=== PATIENT | female | born 1965 | race Caucasian/White ===

== ENCOUNTER 2024-07-20 11:12 | Emergency (ER) | payer OTHER ==
[~2024-07-20] VITALS: Ht 167.6 cm; Wt 86.2 kg
[2024-07-20 11:35] VITALS: BP 139/74; TEMP 98.4
[2024-07-20] MEDS ORDERED: IBUP-1955 PO (11:52)
[2024-07-20] MEDS ORDERED: KETOROLAC TROMETHAMINE 15 MG/ML VIAL ONE (12:33)
[2024-07-20] MEDS: KETOROLAC TROMETHAMINE 15 MG/ML VIAL IM ONE (12:38)
[2024-07-20 12:39] VITALS: O2SAT 96
== END 2024-07-20 12:45 | disposition home or self-care (01) ==
LOC: ER 11:34
DX: S83.8X1A Sprain of other specified parts of right knee, initial encounter (principal); Z79.899 Other long term (current) drug therapy; Z88.0 Allergy status to penicillin; W18.39XA Other fall on same level, initial encounter; Y93.89 Activity, other specified; Y92.89 Other specified places as the place of occurrence of the external cause; Y99.8 Other external cause status
CPT/HCPCS: 99283; 96372; 73564; J1885